=== PATIENT | female | born 2000 | race Caucasian/White ===

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

== ENCOUNTER 2019-06-27 04:07 | Emergency (ER) | payer SELFPAY ==
[~2019-06-27] VITALS: Ht 154.9 cm; Wt 70.9 kg
[2019-06-27 04:10] VITALS: BP 102/77
== END 2019-06-27 04:40 | disposition left against medical advice (07) ==
LOC: EMS 04:09
DX: R69 Illness, unspecified (principal); Z53.21 Procedure and treatment not carried out due to patient leaving prior to being seen by health care provider

== ENCOUNTER 2023-03-22 21:43 | Emergency (ER) | payer MEDICAID ==
[~2023-03-22] VITALS: Ht 152.4 cm; Wt 76.4 kg
[2023-03-22 21:56] VITALS: TEMP 100.6
[2023-03-22] MEDS ORDERED: ACETAMINOPHEN 500 MG TABLET PO ONE (22:15)
[2023-03-22 22:25] LABS: COVID AG,FIA SOURCE NASAL SWAB
[2023-03-22] MEDS ORDERED: IBUPROFEN 600 MG TABLET PO ONE (22:45)
[2023-03-22] MEDS ORDERED: GuaiFENesin/D-METHORPHAN [SUGAR-FREE] 200-20MG/10 ML SYRUP UDCUP PO ONE (22:45)
[2023-03-22] MEDS ORDERED: ACETAMINOPHEN/CODEINE 300-30 MG TABLET PO ONE (22:45)
[2023-03-22 22:46] LABS: INFLUENZA TYPE B NEGATIVE FOR TYPE B (NEGATIVE); SARS-COV2 (COVID) ANTIGEN,FIA Negative (Negative)
[2023-03-22 23:00] VITALS: BP 119/84; PULSE 98; RESP 17
[2023-03-22 23:01] LABS: INFLUENZA TYPE A POSITIVE FOR TYPE A (NEGATIVE)
[2023-03-22] MEDS ORDERED: IBUP-1554 PO (23:36)
[2023-03-22] MEDS ORDERED: ACET-2080 PO (23:36)
[2023-03-22] MEDS ORDERED: GUAIFDM PO (23:36)
== END 2023-03-22 23:54 | disposition home or self-care (01) ==
LOC: EMS 21:55
DX: J10.1 Influenza due to other identified influenza virus with other respiratory manifestations (principal); Z98.890 Other specified postprocedural states; Z20.822 Contact with and (suspected) exposure to COVID-19
CPT/HCPCS: 84703; 87804; 99284; Z7502; Z7610